=== PATIENT | male | born 1945 | race Caucasian/White ===

== ENCOUNTER 2017-03-22 17:42 | Emergency (ER) | payer MEDICARE ==
[~2017-03-22] VITALS: Ht 174 cm; Wt 70.0 kg
[2017-03-22 17:47] VITALS: BP 143/118; PULSE 142; RESP 14; O2SAT 96
--- NOTE | 2017-03-22 17:56 | ED.REPORT ---
HPI-General Illness Date of Service Mar 22, 2017 ED Provider: Jad Curtis MD Patient is an overall healthy 71 year old male who presents to the ED via EMS s/ p going into afib under anesthesia. He was sent by day surgery anesthesiologist Dr. Brooks for new onset afib after being given fentanyl and sevoflurane for elective arthroscopic L knee surgery. He was noted to go from sinus rhythm to Afib with RVR in the 140's. The operation was aborted, he was treated with 15 mg IV labetalol without much effect. He become hypotensive with a systolic pressure as low as 75. Associated symptoms include palpitations. He denies SOB, chest pain, lightheadedness, or any other symptoms. Nursing Notes Stated Complaint: DISRHYTHMIA Chief Complaint: Dysrhythmia/Cardiac Nursing Notes Reviewed: Yes Allergies: Coded Allergies: No Known Allergies (Unverified , 03/22/17) General Time Seen by MD: 17:54 Chief Complaint Other (Irregular heart beat ) Hx Obtained From: Patient Arrived By: Ambulance Sudden in Onset?: Yes Onset Occurred: Just prior to arrival Symptom Duration: Since onset Recent Healthcare: Recent doctor visit Similar Sx Previous: No Past Medical History Past Medical History Healthy Past Surgical History Denies Social History Alcohol Use: 1-3 per day Ambulatory Status Independent Review of Systems +afib Full Review of Systems Respiratory: Denies: Shortness of breath Cardiovascular: Reports: Palpitations, Denies: Chest pain Neurologic: Denies: Lightheaded Complete sys rev & neg: except as marked. Physical Exam Vital Signs Vital Signs Date Time Temp Pulse Resp B/P Pulse Ox O2 Delivery O2 Flow Rate FiO2 03/22/17 20:09 72 16 101/62 96 Room Air 03/22/17 19:04 77 10 115/70 98 Room Air 03/22/17 17:58 129 15 112/60 98 Room Air 03/22/17 17:47 36.4 142 14 143/118 96 Room Air Initial VS: Reviewed General/Constitutional: Well-developed, Well-nourished Head / Eyes: Atraumatic, Normocephalic Neck: Full range of motion Abdomen / GI: Soft, Non-tender Skin: Warm, Dry Neurologic: Alert, Oriented, Nonfocal Psychiatric: Mood/affect normal, Behavior normal, Normal thought content Cardiovascular: Peripheral circulation NL, Pulses = bilaterally Heart Rate / Rhythm: Positive: Irregular rhythm, Tachycardia Lower Extremity / Pelvis / MS: Inspection NL Lan bandage and post surgical bandage over L knee Interpretation & Diagnostics Lab Results Interpretation Result Diagram: 03/22/17 1821 03/22/17 1821 Test 03/22/17 18:21 White Blood Count 5.5th/mm3 (3.8-10.1) Red Blood Count 5.02mil/mm3 (4.40-5.80) Hemoglobin 15.5g/dL (13.8-17.2) Hematocrit 45.5% (41.0-50.0) Mean Corpuscular Volume 90.6fL (81-100) Mean Corpuscular Hemoglobin 30.9pg (27.0-35.0) Mean Corpuscular Hemoglobin Concent 34.1% (32.0-37.0) Red Cell Distribution Width 13.7% (12.3-15.4) Platelet Count 153bil/L (150-400) Neutrophils (%) (Auto) 58.8% (40-74) Lymphocytes (%) (Auto) 27.0% (14-46) Monocytes (%) (Auto) 9.4% (4-12) Eosinophils (%) (Auto) 3.9% (0-5) Basophils (%) (Auto) 0.7% (0-3) Sodium Level 138mEq/L (134-144) Potassium Level 4.1mEq/L (3.5-5.2) Chloride Level 102mEq/L (97-108) Carbon Dioxide Level 22mmol/L (18-29) Blood Urea Nitrogen 14mg/dL (8-27) Creatinine 0.77mg/dL (0.76-1.27) Estimat Glomerular Filtration Rate 105mL/min (>59) Glucose Level 102mg/dL (60-99) Calcium Level 10.4mg/dL (8.5-10.1) Magnesium Level 1.8mg/dL (1.6-2.6) Total Bilirubin 0.5mg/dL (0.0-1.2) Aspartate Amino Transf (AST/SGOT) 25U/L (0-50) Alanine Aminotransferase (ALT/SGPT) 24U/L (0-44) Alkaline Phosphatase 55U/L (25-160) Troponin T < 0.010ug/L (0.0-0.011) Total Protein 6.9g/dL (6.4-8.4) Albumin 4.3g/dL (3.4-5.0) ECG Interpretation ECG Interpretation: afib with rvr rate 147 nL axis interval borderline ST depression lat leads no prior Time: 17:56 Interpreted by: ED physician ECG Interpretation: Repeat EKG Sinus rate 74 Normal axis and interval no st elevation or t wave abnL no longer in afib compared to prior Time: 18:54 Interpreted by: ED physician X-Ray Chest Interpretation Chest Xray Interpretation: IMPRESSION: Negative chest Dictated by: Itz Rubalcava M.D. on 03/22/2017 at 18:44 Approved by: Itz Rubalcava M.D. 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, Hand hygiene observed Procedural Sedation/Analgesia: Sedation: Etomidate Joules: 150 Procedure Successful: Yes Post-Procedure Rhythm: Normal sinus rhythm Post-Procedure / Complications: No complications, Condition improved, Tolerated procedure well, Patient stable Proced Mod Sedation/Analgesia 24 minutes Time: 18:48 Procedure Performed by: ED physician Sedation Time: 16 - 30 min (20) Consent / Setup: Informed consent provided, Consent from patient, Time-out performed, Hand hygiene observed, Position supine Indication: Other (Cardioversion) Preparation: transfusion aide applied, Pulse oximeter applied, Constant attendance, IV access established, Eval last meal time, Supplemental oxygen, Procedure explained VS Prior to Procedure: Respiratory rate normal CVS/Resp Exam: Normal breath sounds Sedation: Sedation: Etomidate ASA Classification: 1 normal healthy patient Complications During/After: None Reversal: None required Mental Status After Procedure: Alert, Oriented X3, At patient's baseline Post-Procedure: Alert prior to discharge Attestation: I performed procedure, I performed sedation Re-Eval/Medical Decision Med Decision/Clinical Course Patient is an overall healthy 71 year old male who presents to the ED via EMS s/ p going into afib under anesthesia. He was sent by day surgery anesthesiologist Dr. Brooks for new onset afib after being given fentanyl and sevoflurane for elective arthroscopic L knee surgery. He was noted to go from sinus rhythm to Afib with RVR in the 140's. The operation was aborted, he was treated with 15 mg IV labetalol without much effect. He become hypotensive with a systolic pressure as low as 75. Associated symptoms include palpitations. He denies SOB, chest pain, lightheadedness, or any other symptoms. Patient denies any history of atrial fibrillation and states that he can tell he is in an abnormal heart rhythm. Upon arrival the patient is hemodynamically stable though and atrial fibrillation with rapid ventricular response and a rate in the 140s to 150s. He reports feeling mildly lightheaded and reports palpitations. EKG was obtained and interpreted by myself as documented above. Laboratory studies were notable as below: CBC unremarkable CMP unremarkable Troponin negative I had a long discussion with the patient regarding management options. He discussed anticoagulation/rate control and outpatient follow-up with cardiology , admission, heparinization and discussion with cardiology as well as elective cardioversion here in the emergency Department. Given that the patient has definitively been in atrial fibrillation for less than 48 hours with no previous history thereof we feel that he is a good candidate for elective cardioversion. Consent was obtained and procedural sedation was performed using etomidate. Performed synchronized electrocardioversion at 150 J with immediate resolution of his atrial fibrillation. Subsequent EKG demonstrated normal sinus rhythm without any ischemic changes. Patient was monitored here in the emergency department thereafter and remained in normal sinus rhythm and reported feeling completely back to baseline. He does not desire admission. He has been referred to cardiology and will follow-up in the next 24-48 hours. At this time, I feel the patient is appropriate for discharge. I suspect that his atrial fibrillation was likely a result of anesthesia though may be also related to his admitted excessive alcohol use. Prior to discharge follow-up and return precautions were reviewed in detail with the patient who verbalized understanding and agreement with the plan. The patient was discharged in stable condition. Time of Eval: 19:31 Re-Evaluation/Progress Note: Discussed plan for discharge. Patient understands and agrees with plan. All questions addressed at this time. Counseled Regarding: Diagnosis, Need for follow-up, When/why to return to ED Discharge & Departure Primary Impression: Atrial fibrillation with RVR Additional Impressions: Palpitations Lightheadedness Adverse effect of anesthesia Encounter type: initial encounter Qualified Code: T41.45XA - Adverse effect of unspecified anesthetic, initial encounter Disposition: Home Discharge Condition All VS Reviewed: Yes Condition: Improved Additional Instructions: Thank you for seeking care at the emergency room. You were seen in the emergency department for atrial fibrillation with a fast heart rate. Our primary goal today in the ED was to evaluate you for any life-threatening conditions. Your evaluation was reassuring. We performed an electrical cardioversion and you are now back in a normal heart rhythm. You should follow-up with the sightseeing guide in the next 1-2 days. You should return to the ED immediately if you develop racing heart, lightheadedness, fevers, vomiting, cough, shortness of breath, chest pain, weakness or any other concerning signs or symptoms. Thank you for letting us partake in your care today. Referrals: Ishan Velarde MD Crit Care Except Billable Proc Time Spent: 75-104 minutes Services Performed: Patient management by me, Time spent at bedside, Reviewing test results, Reviewing imaging, Discussing patient care, Documentation in record, Time with fam/surrogate Scribe Attestation Portions of this note were transcribed by Susanna Gotti. I, Dr. Curtis personally performed the history, physical exam and medical decision-making; I reviewed and confirmed the accuracy of the information in the transcribed note. Signed by: Susanna Gotti 03/22/2017, 1953 Jad Curtis MD Mar 22, 2017 17:56 SUSANNA GOTTI Mar 22, 2017 18:24
[2017-03-22 17:58] VITALS: BP 112/60; PULSE 129; RESP 15; O2SAT 98
[2017-03-22 18:24] LABS: BASOPHILS % (AUTO) 0.7 % (0-3); EOSINOPHILS % (AUTO) 3.9 % (0-5); MONOCYTES % (AUTO) 9.4 % (4-12); Mean Corpuscular Hemoglobin 30.9 pg (27.0-35.0); Mean Corpuscular Volume 90.6 fL (81-100); NEUTROPHILS % (AUTO) 58.8 % (40-74); Platelet Count 153 bil/L (150-400)
[2017-03-22] MEDS ORDERED: Etomidate 2 mg/mL 20 mL Inj IV ONE (18:25)
[2017-03-22 18:48] LABS: TROPONIN T < 0.010 ug/L (0.0-0.011)
--- NOTE | 2017-03-22 18:52 | DRSVH ---
PROCEDURE: X-RAY CHEST ONE VIEW, PORTABLE ([id number]) INDICATIONS: CARDIAC TECHNIQUE: One view of the chest was acquired. COMPARISON: None. FINDINGS: Surgical changes and devices: None. Lungs and pleura: No pleural effusions or pneumothorax. Lungs are clear. Mediastinum: Mediastinal contours appear normal. Heart size is normal. Bones and chest wall: No suspicious bony lesions. Overlying soft tissues appear unremarkable. Bila teral shoulder degenerative change. IMPRESSION: Negative chest Dictated by: Itz Rubalcava M.D. on 03/22/2017 at 18:44 Approved by: Itz Rubalcava M.D. on 03/22/2017 at 18:45
[2017-03-22 18:56] LABS: Magnesium 1.8 mg/dL (1.6-2.6)
[2017-03-22 19:04] VITALS: BP 115/70; PULSE 77; RESP 10; O2SAT 98
[2017-03-22 20:09] VITALS: BP 101/62; PULSE 72; RESP 16; O2SAT 96
== END 2017-03-22 20:05 | disposition home or self-care (01) ==
LOC: SED 17:42
DX: I48.91 Unspecified atrial fibrillation (principal); R00.2 Palpitations; R42 Dizziness and giddiness; T41.0X5A Adverse effect of inhaled anesthetics, initial encounter; T40.4X5A Adverse effect of other synthetic narcotics, initial encounter; Y93.89 Activity, other specified; Y92.530 Ambulatory surgery center as the place of occurrence of the external cause; Y99.8 Other external cause status; I95.9 Hypotension, unspecified